=== PATIENT | male | born 1985 | race Asian ===

== ENCOUNTER 2016-09-20 15:57 | Emergency (ER) | payer OTHER ==
--- NOTE | ~2016-09-20 | EKG ---
PATIENT: MAYRA WERNER UNIT #: [id number] Ventricular Rate: 59 BPM Atrial Rate: 59 BPM P-R Interval: 152 ms QRS Duration: 74 ms Q-T Interval: 408 ms QTC Calculation(Bezet): 403 ms P [place]: -11 degrees Calculated R [place]: 104 degrees Calculated T [place]: 48 degrees Diagnosis Line: Sinus bradycardia Diagnosis Line: Rightward axis Diagnosis Line: Otherwise normal ECG Diagnosis Line: When compared with ECG of 20-JUL-2016 19:49, Diagnosis Line: No significant change was found Diagnosis Line: Confirmed by KENYATTA GLYNN MD ([id number]) on 09/22/2016 Diagnosis Line: 9:15:10 AM INTERPRETING MD: GRETTA BRIGHT
--- NOTE | ~2016-09-20 | CR63 ---
[facility] A Service of [facility] [place] RADIOLOGY TEXT RESULTS PATIENT: MAYRA WERNER LOCATION: [facility] : 89 UNIT #: [id number] AGE: [address]: Erica Cat SEX: M ORDER DR: [id number] [facility] [address], [place] [address] [id number] E MR#: [id number] Acc #: [id number] NAME: MAYRA WERNER : 1985 SEX: M STUDY DATE/TIME: 09/20/2016 17:14 UNIT: [facility] ROOM: STUDY DESCRIPTION: CR Chest 2 View Attending Physician: Erica Cat Pa-C Ordering Physician: Erica Cat Pa-C Primary Care Physician: Petrona Luna M.D. MEDICAL IMAGING REPORT This report is preliminary unless electronic signature is present EXAM chest x-ray 09/20 INDICATIONS Shortness of air, weakness and chest pressure that started today. COMPARISON: 07/20/2016. FINDINGS PA and lateral examination of the chest upright shows a good expansion of the parenchyma with a normal distribution of the pulmonary vascularity. There is no indication of congestion, effusion, infiltrate, tumor, or nodular density. The pleural reflections and diaphragmatic contours are normal. The cardiac silhouette and mediastinal anatomy is within normal limits. IMPRESSION Normal chest. Dictated by... Juan Baum Jr., M.D. THIS IS AN ELECTRONICALLY VERIFIED REPORT Juan Baum Jr., M.D. at 09/21/2016 1:41 PM RLK/luisa TD: 09/21/2016 09:37 JOB #: [id number] MEDICAL IMAGING REPORT [facility] A Service of [facility] [place] [place] RADIOLOGY TEXT RESULTS PATIENT: MAYRA WERNER LOCATION: [facility] : 89 UNIT #: [id number] AGE: [address]: Erica Cat SEX: M ORDER DR: Page 1 of 1 COPY
[2016-09-20 16:19] LABS: BASOPHIL% 0.5 % (0-2.5); EOSINOPHIL# 0.1 X10e3 (0-0.7); EOSINOPHIL% 1.4 % (0.0-7.0); HEMATOCRIT 48.7 % (38.0-50.0); LYMPHOCYTE# 1.5 X10e3 (1.0-3.5); LYMPHOCYTE% 20.7 % (17.0-45.0); MEAN CELL VOLUME 86.6 FL (83-96); MEAN CORPUSCULAR HEMOGLOBIN 28.4 PG (28-34); MEAN CORPUSCULAR HGB CONC 32.8 g/dL (30-36); MEAN PLATELET VOLUME 9.1 FL (6.5-11.5); MONOCYTE# 0.6 X10e3 (0-1.0); MONOCYTE% 8.7 % (3.0-12.0); NEUTROPHIL% 68.7 % (40-75); PLATELET COUNT 237 X10e3 (140-420); RED BLOOD COUNT 5.62 X10e (3.90-5.60); RED CELL DISTRIBUTION WIDTH 13.1 % (11.0-15.5); WHITE BLOOD COUNT 7.3 X10e3 (4.0-10.5)
[2016-09-20 16:21] LABS: DIFF IND NO
[2016-09-20 16:25] LABS: ALBUMIN SERUM 4.5 g/dL (3.5-5.0); ALKALINE PHOSPHATASE 49 U/L (32-92); ALT (SGPT) 22 U/L (10-40); AST (SGOT) 17 U/L (10-42); BILIRUBIN, DIRECT 0.1 mg/dL (0.0-0.2); BILIRUBIN,INDIRECT 0.5 mg/dL (0.0-0.9); BILIRUBIN,TOTAL 0.6 mg/dL (0.2-2.0); BLOOD UREA NITROGEN 18 mg/dL (9-23); BUN/CREATININE RATIO 25.71; CALCIUM SERUM 8.8 mg/dL (8.4-10.2); CARBON DIOXIDE 27 mmol/L (22-31); CHLORIDE 104 mmol/L (100-111); CREATININE SERUM 0.7 mg/dL (0.6-1.4); GLOM FILT RATE Estimated ABOVE60 mL/min (>60); GLUCOSE FASTING 94 mg/dL (70-110); POTASSIUM 4.2 mmol/L (3.5-5.1); PROTEIN TOTAL SERUM 7.5 g/dL (6.0-8.3); SODIUM 137 mmol/L (135-145)
[2016-09-20 17:37] LABS: URINE SOURCE CLEAN CATCH
[2016-09-20 17:43] LABS: URINE APPEARANCE CLEAR; URINE BILIRUBIN NEG (NEG); URINE BLOOD NEG (NEG); URINE COLOR YELLOW; URINE GLUCOSE NEG (NEG); URINE KETONE NEG (NEG); URINE LEUKOCYTE ESTERASE NEG (NEG); URINE NITRATE NEG (NEG); URINE PROTEIN NEG (NEG); URINE SPECIFIC GRAVITY 1.015 (1.003-1.035); URINE UROBILINOGEN 0.2 MG/DL (NEG)
[2016-09-20 17:53] LABS: CULTURE INDICATED? NO
[2016-09-20 18:01] LABS: AMPHETAMINE NEG (NEG); BARBITURATES NEG (NEG); BENZODIAZEPINES NEG (NEG); COCAINE NEG (NEG); MARIJUANA NEG (NEG); OPIATES NEG (NEG); TRICYCLIC ANTIDEPRESSANTS NEG (NEG); U METHADONE NEG (NEG)
== END 2016-09-20 18:56 | disposition home or self-care (01) ==
LOC: CED 15:57
PROVIDERS: Physician Assistant Medical
DX: R55 Syncope and collapse (principal); F17.210 Nicotine dependence, cigarettes, uncomplicated; Z98.890 Other specified postprocedural states
CPT/HCPCS: 36415; 71020; 80048; 80076; 80307; 81003; 85025; 93005; 99285

== ENCOUNTER 2016-10-31 17:18 | Emergency (ER) | payer OTHER ==
--- NOTE | ~2016-10-31 | CR281 ---
[facility] A Service of [facility] RADIOLOGY TEXT RESULTS PATIENT: MAYRA WERNER LOCATION: [facility] : 89 UNIT #: [id number] AGE: [address]: Erica Cat SEX: M ORDER DR: [id number] [facility] [address] [place], [place] [address] [id number] E MR#: [id number] Acc #: [id number] NAME: MAYRA WERNER : 1985 SEX: M STUDY DATE/TIME: 10/31/2016 16:58 UNIT: [facility] ROOM: STUDY DESCRIPTION: CR Wrist Min 3 View Lt Attending Physician: Erica Cat Pa-C Ordering Physician: Erica Cat Pa-C Primary Care Physician: Petrona Luna M.D. MEDICAL IMAGING REPORT This report is preliminary unless electronic signature is present EXAM Left wrist, 3 views HISTORY Wrist pain for 1 week. No injury. FINDINGS Wrist evaluation in multiple projections shows normal mineralization of the bony structures about the wrist and satisfactory articular relationship of the radius and ulna to the proximal carpal row and of the distal carpal segments to the metacarpal bases. There is no indication of fracture or dislocation, and no soft tissue radiopaque foreign body is present. No congenital defects are apparent. IMPRESSION Normal wrist. Dictated by... Tin House M.D. THIS IS AN ELECTRONICALLY VERIFIED REPORT Tin House M.D. at 11/01/2016 2:38 PM DFL/heydi TD: 10/31/2016 20:35 JOB #: [id number] MEDICAL IMAGING REPORT Page 1 of 1 COPY
== END 2016-10-31 17:53 | disposition home or self-care (01) ==
LOC: CFTX 17:18
DX: S63.502A Unspecified sprain of left wrist, initial encounter (principal); X58.XXXA Exposure to other specified factors, initial encounter; Y92.69 Other specified industrial and construction area as the place of occurrence of the external cause
CPT/HCPCS: 29125; 73110; 99283